=== PATIENT | female | born 1990 | race Caucasian/White ===

== ENCOUNTER 2019-12-27 | Outpatient (CLI) | payer MEDICAID ==
[~2019-12-27] MED LIST: MOTRIN 800800 MG/TAB PO; NO HOME MEDICATIONS
--- NOTE | 2019-12-27 | NUR ---
PT ARRIVES TO UNIT AMBULATORY WITH CONCERNS ABOUT MUCOUSY DISCHARGE AND POSSIBLE LOSS OF MUCOUS PLUG. FOB PRESENT. PT SEEN IN [place] BY DR. PÉREZ, NO PRENATALS AVAILABLE. PER PT, SHE IS A G5L3 WITH HX OF 2 VAGINAL DELIVERIES AND 1 C/S, TYPE 1 DIABETIC AND STATES THAT HE BLOOD SUGARS RANGE FROM 28-800, STATES SHE HAD A SEIZURE DUE TO LOW BLOOD SUGAR IN [place], SHE CHECKED HER BLOOD SUGAR THIS EVENING AT 2030 BUT COULD ONLY REMEMBER THAT IT WAS IN THE 200'S. SHE DENIES ANY OTHER SIGNIFICANT MEDICAL HX. STATES HER DUE DATE IS BETWEEN 03/13/20-03/21/20 BUT HER PHONE KAITLIN SAYS SHE 29.5 WEEKS TODAY. SVE PERFORMED , VS OBTAINED, EFM X2 APPLIED.
[2019-12-27 00:50] VITALS: BP 111/71; PULSE 103; TEMP 98.2
[2019-12-27 00:58] VITALS: BP 111/71; PULSE 103; TEMP 98.2
[2019-12-27] MEDS ORDERED: LEVEMIR100 U/ML SQ (01:05)
[2019-12-27] MEDS ORDERED: HUMALOG100 U/ML SQ (01:06)
[2019-12-27] MEDS ORDERED: TYLENOL 500MG500 MG PO (01:07)
[2019-12-27] MEDS ORDERED: ASPIRIN 81M81 MG/TA2 PO (01:07)
[2019-12-27] MEDS ORDERED: PRENATAL PO (01:08)
--- NOTE | 2019-12-27 01:15 | NUR ---
0044- DR. ANDRADE NOTIFIED OF PT ARRIVAL, AND MEDICAL HX. AUGUST DC HOME PER DR. ANDRADE. 0050- PT OFF THE MONITOR AT THIS TIME. 0115- DISCHARGE INSTRUCTIONS REVIEWED WITH PT AND FOB, UNDERSTANDING VERBALIZED. PT AND FOB OFF UNIT AMBULATORY FOR HOME.
== END 2019-12-27 01:15 | disposition home or self-care (01) ==
LOC: LDRO → LDR 00:56 → LDRO 01:15
DX: O26.893 Other specified pregnancy related conditions, third trimester (principal); Z3A.29 29 weeks gestation of pregnancy

== ENCOUNTER 2020-01-15 21:43 | Outpatient (CLI) | payer MEDICAID ==
--- NOTE | 2020-01-15 21:30 | NUR ---
PT ARRIVED TO UNIT WITH COMPLAINTS OF VAGINAL ITCHING AND PRESSURE. PT DOCTORS IN [place] BUT WAS INSTRUCTED BY HER PRIMARY OB TO COME TO OUR UNIT TO BE EVALUATED. PT AMBULATORY, ORIENTED TO ROOM, CHANGED INTO GOWN, SVE PERFORMED, VS OBTAINED, EFM X2 APPLIED. PT STATES THAT HER DUE DATE IS "SOMEWHERE BETWEEN 03/13-03/21 WHICH WOULD PUT AT 30.4- 31.5 WEEKS TODAY, G4L3. PT IS A TYPE 1 DIABETIC. STATES LAST BLOOD GLUCOSE WAS 135 AT 1730.
[~2020-01-15 21:43] MED LIST changes: +ASPIRIN 81M81 MG/TA2 PO; +HUMALOG100 U/ML SQ; +LEVEMIR100 U/ML SQ; +PRENATAL PO; +TYLENOL 500MG500 MG PO
[2020-01-15 22:00] VITALS: BP 114/72; PULSE 113; TEMP 97.8
[2020-01-15 22:10] LABS: COLLECTION METHOD CLEAN CATCH
--- NOTE | 2020-01-15 22:10 | NUR ---
BLOOD SUGAR OF 387. WILL NOTIFY PHYSICIAN WHEN UA RESULTS.
[2020-01-15 22:20] LABS: MUCOUS Present /lpf; PH 5 (5-8); SQUAMOUS EPITHELIAL 20-50 /hpf; URINE APPEARANCE Cloudy; URINE BACTERIA Rare /hpf; URINE BILIRUBIN Negative (NEGATIVE); URINE BLOOD Negative (NEGATIVE); URINE CALCIUM OXALATE CRYSTAL Present /hpf; URINE COLOR Amber; URINE GLUCOSE 3+ (NEGATIVE); URINE KETONE 1+ (NEGATIVE); URINE LEUKOCYTE ESTERASE Negative (NEGATIVE); URINE NITRATE Negative (NEGATIVE); URINE PROTEIN(semi-quant) 1+ (NEGATIVE); URINE UROBILINOGEN >=4.0 mg/dL (NEGATIVE)
[2020-01-15 22:30] VITALS: PULSE 113
[2020-01-15 23:00] VITALS: PULSE 113
--- NOTE | 2020-01-15 23:40 | NUR ---
IV fluids infused. IV to INT. off monitor, up to bathroom.
--- NOTE | 2020-01-16 00:30 | NUR ---
0016- PT OFF THE MONITOR AT THIS TIME, MAY DC HOME PER DR. SHARP. PT INSTRUCTED TO NOTIFY OB IN [place] IN THE MORNING OF THIS VISIT AND OF UA RESULTS. PT VERBALIZED UNDERSTANING. 0030- PT OFF THE UNIT AMULATORY FOR HOME.
== END 2020-01-16 00:30 | disposition home or self-care (01) ==
LOC: LDRO 21:43 → LDR 22:01 → LDRO 01-16 00:30
PROVIDERS: Obstetrics & Gynecology
DX: O26.893 Other specified pregnancy related conditions, third trimester (principal); O24.013 Pre-existing type 1 diabetes mellitus, in pregnancy, third trimester; E10.9 Type 1 diabetes mellitus without complications; R10.2 Pelvic and perineal pain; F17.210 Nicotine dependence, cigarettes, uncomplicated; Z3A.30 30 weeks gestation of pregnancy
CPT/HCPCS: J1815; J7040

== ENCOUNTER 2020-12-14 23:50 | Outpatient (CLI) | payer MEDICAID ==
[~2020-12-14] VITALS: Ht 165.1 cm; Wt 78.6 kg
--- NOTE | 2020-12-15 00:10 | NUR ---
PT ARRIVES VIA WHEELCHAIR FROM HOME. REPORTS SHE FELL IN HER DRIVEWAY AFTER STANDING UP FROM CAR AT 2340 THIS EVENING. BILATERAL ABRASIONS TO KNEES/NO DRAINAGE OR BLEEDING AT THIS TIME. SEES IN [place] FOR CARE. NO RECORDS AVAILABLE UPON ARRIVAL. STATES SHE "FELL FORWARD". DENIES COMPLICATIONS. REPORTS G19,P1,A15,L4. PLACED ON EFM/TOCO. DENIES LEAKING OF FLUID. REPORTS POSITIVE MOVEMENT. REPORTS MILD CONTRACTIONS. CATEGORY 1 STRIP NOTED AT THIS TIME. MILD CONTRACTIONS Q10 MIN. OFFERED PO HYDRATION. ALSO REPORTS HX. OF TYPE 1 DIABETES WITH NO PANCREASE. STATES BLOOD GLUCOSE WAS 171 AT TIME OF FALL WHICH IS NORMAL FOR HER. BG OBTAINED UPON ARRIVAL IS 92. WILL CONTINUE TO MONITOR STRIP. 0035: PT REQUESTING PAIN CONTROL FOR DENTAL PAIN. STATES SHE WOULD RATHER BE SEEN IN THE ER TO GET HER KNEES CLEANSED AND ADEQUATE PAIN CONTROL FOR DENTAL PAIN AND KNEE ABRASION PAIN. THIS NURSE CLEANSED BOTH KNEES. 0110: PT STATES SHE WOULD RATHER JUST GO HOME NOW INSTEAD OF THE ER. SHE REPORTS SHE IS TIRED. DC PAPERWORK REVIEWED AND UNDERSTOOD. PT TO CAR VIA WHEELCHAIR IN STABLE CONDITION AT THIS TIME.
[2020-12-15] MEDS ORDERED: WELCHOL 625MG625 MG PO (00:25)
[2020-12-15 00:30] VITALS: BP 98/59; PULSE 103; TEMP 97.9
[2020-12-15 00:50] VITALS: BP 98/66; PULSE 103
== END 2020-12-15 01:12 | disposition home or self-care (01) ==
LOC: COL.ER 23:50 → LDR 23:50 → LDRO 23:50 → LDR 12-15 00:27 → LDRO 12-15 01:12
DX: Z34.90 Encounter for supervision of normal pregnancy, unspecified, unspecified trimester (principal); Z3A.00 Weeks of gestation of pregnancy not specified
CPT/HCPCS: OP